=== PATIENT | female | born 1970 | race Caucasian/White ===

== ENCOUNTER → 2017-03-23 | Outpatient (CLI) | payer OTHER ==
--- NOTE | 2017-03-23 15:02 | RAD ---
HISTORY: Pain Study: Left knee series Comparison: None Findings: No evidence for acute cortical disruption or dislocation. The medial and lateral tibiofemoral compar tments appear unremarkable without loss of significant joint space. The lateral radiograph fails to demonstrate significant joint effusion. Patellofemoral compartment is normal in its appearance. IMPRESSION: 1. Negative exam. Reported By:
== END ==
LOC: RAD 13:26
PROVIDERS: ATTEND Obstetrics & Gynecology Obstetrics
DX: M76.52 Patellar tendinitis, left knee (principal)
CPT/HCPCS: 73560

== ENCOUNTER 2017-07-18 14:17 | Observation (INO) | payer BC, OTHER ==
[~2017-07-18 14:17] MED LIST: DIPRIVAN VIAL ONE; LTA KIT LIDOCAINE 4% ONE; NEOSTIGMINE INJ ONE; NORCURON INJ 10 MG VIAL ONE; QUELICIN (OR ANECTINE) ONE; REGLAN INJ 10 MG VIAL ONE; ROBINUL ONE; SUPRANE IN ONE; TORADOL 30 MG VIAL ONE; VERSED ONE; XYLOCAINE 2 % (PLAIN) ONE; ZOFRAN INJ 4 MG VIAL ONE
[2017-07-18 14:26] VITALS: BMI 40.0
--- NOTE | 2017-07-18 15:25 | DR.GENAD ---
HPI - PCP Primary Care Physician: DRAKE - HPI Comment HPI Comment: PAIN GETTING WORSE. PAIN MED TAKING AT HOME IS NOT HELPING PAIN. - Complaint/Symptoms Chief Complaint Doctors Comments: RLQ ABDOMINAL PAIN TIMES 2 TO 3 DAYS WITH NAUSEA. Chief Complaint:: PT C/O RLQ PAIN. PT STATES HER PAIN STARTED WEDNESDAY NIGHT WITH NAUSEA. PT STATES THE PAIN IS GETTING WORSE. THE PT STATES SHE HAS BEEN TAKING PAIN MEDICATIONS WITHOUT RELIEF. - Nurses notes reviewed Nurses Notes Review: Yes - Source History Provided: Patient - Mode of Arrival Mode of Arrival: Ambulatory - Timing Onset of Chief Complaint: 07/16/17 Came on: Suddenly - Duration Duration: Constant Duration: Days - Severity Severity: Moderate PMH - PMH Past Medical History: Yes Past Medical History: Hypertension Past Surgical History: Yes Surgical History: , Tonsillectomy Past Surgical History Comment: WART REMOVAL, LIPOMA REMOVAL, CARPEL TUNNEL - Family History History of Family Medical Conditions: No - Social History Does patient currently use any type of tobacco product: Yes Have you used tobacco products in the last 12 months: Yes Type of Tobacco Use: Cigarettes Does any household member use tobacco: Yes Alcohol Use: Occasionally Do you use any recreational Drugs:: No Lives With: Family Lives Where: Home - infectious screening In the last 2 months have you had wt loss of >10#?: NO Have you had fever, night sweats or hemotysis?: No Have you traveled outside the country in the last 6 months?: No Isolation: Standard ROS - Review of Systems Constitutional: Weakness. negative: Chills, Fatigue Eyes: No Symptoms Reported ENTM: No Symptoms Reported Respiratoy: No Symptoms Reported Cardiovascular: No Symptoms Reported Gastrointestinal/Abdominal: Abdominal Pain, Nausea Genitourinary: No Symptoms Reported. negative: Dysuria, Frequency, Hematuria Neurological: No Symptoms Reported, Weakness Musculoskeletal: No Symptoms Reported Integumentary: No Symptoms Reported Hematologic/Lymphatic: No Symptoms Reported Endocrine: No Symptoms Reported All Other Systems: Reviewed and Negative PE - Vital Signs Vitals: Temperature 98.8 F Pulse Rate 83 Respiratory Rate 22 Blood Pressure 124/68 O2 Sat by Pulse Oximetry 100 - General Limitations: No Limitations General Appearance: Alert - Head Head Exam: Normal Inspection - Eyes Eye exam: Normal Appearance - ENT ENT Exam: Normal External Ear Exam External Ear Exam: Normal External Inspection TM/Canal Exam: Bilateral Normal Nose Exam: Normal Nose Exam Mouth Exam: Normal Inspection Throat Exam: Normal Inspection - Neck Neck Exam: Normal Inspection - Chest Chest Inspection: Symmetric Chest Wall Rise - Respiratory Respiratory Exam: Normal Lung Sounds Bilat Respiratory Exam: Bilateral Clear to Auscultation - Cardiovascular Cardiovascular Exam: Regular Rate, Normal Rhythm, Normal Heart Sounds - Abdominal Exam Abdominal Exam: Normal Bowel Sounds, Soft, Tenderness, Guarding Abdominal Tenderness: RLQ, Moderate - Extremities Extremities Exam: Normal Inspection - Back Back Exam: Normal Inspection - Neurologic Neurological Exam: Alert, Oriented X3 - Psychiatric Psychiatric Exam: Normal Affect, Normal Mood - Skin Skin Exam: Normal Color MDM - Additional Information Additional Information Obtained From: Family - Differential Diagnosis Differential Diagnosis: RLQ ABDOMINAL PAIN, ACUTE APPENDICITIS Course - Treatment Treatment: SEE ORDERS. - Consultation Consultation Comments: DR DESAI WILL BE IN TO DO IMMERGENCY SURGERY ON PT. DR. ENGLE WILL ADMIT PATIENT. - Education/Counseling Education/Counseling: Patient, Family Educated On: Diagnosis ROR - Labs Reviewed Laboratory Results Reviewed?: Yes Result Diagrams: 07/18/17 15:35 07/18/17 15:35 Laboratory: WBC 17.2 X10^3/uL (3.6-10.0) H 07/18/17 15:35 RBC 4.44 X10^6/uL (3.5-5.4) 07/18/17 15:35 Hgb 13.1 g/dL (12.0-16.0) 07/18/17 15:35 Hct 37.6 % (36.0-47.0) 07/18/17 15:35 MCV 84.6 fL (80.0-100.0) 07/18/17 15:35 MCH 29.4 pg (27.0-34.0) 07/18/17 15:35 MCHC 34.8 g/dL (33.0-35.0) 07/18/17 15:35 RDW 13.8 % (11.6-16.5) 07/18/17 15:35 Plt Count 376 X10^3/uL (150.0-450.0) 07/18/17 15:35 MPV 7.6 fL (7.4-11.0) 07/18/17 15:35 Neut % 69.1 % (42.0-75.0) 07/18/17 15:35 Lymph % 20.6 % (21.0-51.0) L 07/18/17 15:35 [place] % 7.8 % (0.0-13.0) 07/18/17 15:35 Eos % 1.9 % (0.9-2.9) 07/18/17 15:35 Baso % 0.6 % (0.2-1.0) 07/18/17 15:35 Neut # 11.9 x10^3/uL (2.2-4.8) H 07/18/17 15:35 Lymph # 3.5 X10^3/uL (1.3-2.9) H 07/18/17 15:35 [place] # 1.3 x10^3/uL (0.3-0.8) H 07/18/17 15:35 Eos # 0.3 x10^3/uL (0.0-0.2) H 07/18/17 15:35 Baso # 0.1 X10^3/uL (0.0-0.1) 07/18/17 15:35 Absolute Nucleated RBC 0.0 /100WBC 07/18/17 15:35 Sodium 136 mmol/L (136-145) 07/18/17 15:35 Corrected Sodium TNP 07/18/17 15:35 Potassium 3.4 mmol/L (3.5-5.1) L 07/18/17 15:35 Chloride 99 mmol/L (98-107) 07/18/17 15:35 Carbon Dioxide 30.4 mmol/L (21-32) 07/18/17 15:35 BUN 9 mg/dL (7-18) 07/18/17 15:35 Creatinine 0.84 mg/dL (0.55-1.02) 07/18/17 15:35 Est GFR (MDRD) Af Amer > 60 (>60) 07/18/17 15:35 Est GFR (MDRD) Non-Af > 60 (>60) 07/18/17 15:35 Glucose 105 mg/dL (65-99) H 07/18/17 15:35 Calcium 8.8 mg/dL (8.5-10.1) 07/18/17 15:35 Corrected Calcium 9.5 mg/dL (8.5-10.1) 07/18/17 15:35 Total Bilirubin 0.40 mg/dL (0.2-1.0) 07/18/17 15:35 AST 11 Units/L (15-37) L 07/18/17 15:35 ALT 14 Units/L (12-78) 07/18/17 15:35 Alkaline Phosphatase 67 Units/L (46-116) 07/18/17 15:35 Total Protein 7.1 g/dL (6.4-8.2) 07/18/17 15:35 Albumin 3.1 g/dL (3.4-5.0) L 07/18/17 15:35 Globulin 4.0 g/dL (2.5-4.5) 07/18/17 15:35 Albumin/Globulin Ratio 0.8 Ratio (1.1-2.1) L 07/18/17 15:35 Amylase 39 Units/L (25-115) 07/18/17 15:35 Lipase 142 Units/L (73-393) 07/18/17 15:35 Specimen Type Random urine 07/18/17 15:43 Urine Color Yellow (YELLOW) 07/18/17 15:43 Urine Appearance Clear (CLEAR) 07/18/17 15:43 Urine pH 7.0 (5.0 - 8.0) 07/18/17 15:43 Ur Specific [place] 1.005 (1.000-1.030) 07/18/17 15:43 Urine Protein Negative (NEGATIVE) 07/18/17 15:43 Urine Glucose (UA) Negative (NEGATIVE) 07/18/17 15:43 Urine Ketones Negative (NEGATIVE) 07/18/17 15:43 Urine Occult Blood 2+ (NEGATIVE) 07/18/17 15:43 Urine Nitrite Negative (NEGATIVE) 07/18/17 15:43 Urine Bilirubin Negative (NEGATIVE) 07/18/17 15:43 Urine Urobilinogen Normal (NORMAL) 07/18/17 15:43 Ur Leukocyte Esterase 1+ (NEGATIVE) 07/18/17 15:43 Urine RBC 01 - 04 /HPF (NEGATIVE) 07/18/17 15:43 Urine WBC 04 - 08 /HPF (NEGATIVE) 07/18/17 15:43 Ur Squamous Epith Cells Many /HPF (NEGATIVE) 07/18/17 15:43 Amorphous Sediment 1+ /HPF (NEGATIVE) 07/18/17 15:43 Urine Bacteria 1+ /HPF (NEGATIVE) 07/18/17 15:43 Urine Trichomonas Few /HPF (NEGATIVE) 07/18/17 15:43 Ur Culture Indicated? No/not indicated 07/18/17 15:43 - XRAY XRAY Interpreted by: Radiologist XRAY Findings: REPORT DISCUSS WITH PATIENT. - Diagnosis Discharge Problem: Acute appendicitis Qualifiers: Acute appendicitis type: unspecified acute appendicitis type Qualified Code(s) : K35.80 - Unspecified acute appendicitis - Discharge Plan Condition: Stable - Follow ups/Referrals Follow ups/Referrals: JUVENAL JUAN [Primary Care Provider] - 3 days - Instructions
[2017-07-18 15:41] LABS: BASOPHILS # (AUTO) 0.1 X10^3/uL (0.0-0.1); BASOPHILS % (AUTO) 0.6 % (0.2-1.0); EOSINOPHILS # (AUTO) 0.3 x10^3/uL (0.0-0.2); EOSINOPHILS % (AUTO) 1.9 % (0.9-2.9); HEMATOCRIT 37.6 % (36.0-47.0); HEMOGLOBIN 13.1 g/dL (12.0-16.0); LYMPHOCYTES # (AUTO) 3.5 X10^3/uL (1.3-2.9); LYMPHOCYTES % (AUTO) 20.6 % (21.0-51.0); MEAN CORPUSCULAR HEMOGLOBIN 29.4 pg (27.0-34.0); MEAN CORPUSCULAR HGB CONC 34.8 g/dL (33.0-35.0); MEAN CORPUSCULAR VOLUME 84.6 fL (80.0-100.0); MEAN PLATELET VOLUME 7.6 fL (7.4-11.0); MONOCYTES # (AUTO) 1.3 x10^3/uL (0.3-0.8); MONOCYTES % (AUTO) 7.8 % (0.0-13.0); NEUTROPHILS # (AUTO) 11.9 x10^3/uL (2.2-4.8); NEUTROPHILS % (AUTO) 69.1 % (42.0-75.0); PLATELET COUNT 376 X10^3/uL (150.0-450.0); RED BLOOD COUNT 4.44 X10^6/uL (3.5-5.4); RED CELL DISTRIBUTION WIDTH 13.8 % (11.6-16.5); WHITE BLOOD COUNT 17.2 X10^3/uL (3.6-10.0)
[2017-07-18 15:50] LABS: ALANINE AMINOTRANSFERASE 14 Units/L (12-78); ALBUMIN 3.1 g/dL (3.4-5.0); ALKALINE PHOSPHATASE 67 Units/L (46-116); AMYLASE 39 Units/L (25-115); ASPARTATE AMINO TRANSFERASE 11 Units/L (15-37); BLOOD UREA NITROGEN 9 mg/dL (7-18); CALCIUM 8.8 mg/dL (8.5-10.1); CARBON DIOXIDE 30.4 mmol/L (21-32); CHLORIDE 99 mmol/L (98-107); COR CA(FOR HYPOALB) 9.5 mg/dL (8.5-10.1); CREATININE 0.84 mg/dL (0.55-1.02); LIPASE 142 Units/L (73-393); SODIUM 136 mmol/L (136-145); TOTAL PROTEIN 7.1 g/dL (6.4-8.2); eGFR BLACK RACES > 60 (>60); eGFR NON BLACK RACES > 60 (>60)
[2017-07-18 15:59] LABS: BILIRUBIN,URINE NEGATIVE (NEGATIVE); BLOOD/HEMOGLOBIN,URINE 2+ (NEGATIVE); GLUCOSE, URINE NEGATIVE (NEGATIVE); KETONES,URINE NEGATIVE (NEGATIVE); LEUKOCYTE ESTERASE ,URINE 1+ (NEGATIVE); NITRITES,URINE NEGATIVE (NEGATIVE); PROTEIN,URINE NEGATIVE (NEGATIVE); UROBILINOGEN,URINE NORMAL (NORMAL)
[2017-07-18 16:01] LABS: APPEARANCE,URINE CLEAR (CLEAR); COLOR,URINE YELLOW (YELLOW)
[2017-07-18] MEDS: NICOTINE PATCH TD SCH (16:02)
[2017-07-18 16:19] LABS: BACTERIA,URINE 1+ /HPF (NEGATIVE); SQUAMOUS EPITHELIAL CELL,UR MANY /HPF (NEGATIVE)
[2017-07-18 16:20] LABS: AMORPHOUS SEDIMENT,UR 1+ /HPF (NEGATIVE); TRICHOMONAS,URINE FEW /HPF (NEGATIVE)
--- NOTE | 2017-07-18 18:23 | CT ---
HISTORY: Right lower quadrant pain which started on Wednesday Study: CT abdomen and pelvis with contrast Comparison: None Technique: Multiple axial images of the abdomen and pelvis were obtained from the lung bases to the pubic symphy sis after the administration of IV contrast. Findings: The visualized portions of the lung bases are unremarkable. The liver, spleen, pancreas, kidneys, an d adrenal glands are unremarkable in their CT appearance. The gallbladder is unremarkable in its CT a ppearance. No significant mesenteric lymphadenopathy or stranding can be observed. No free fluid or free air is seen within the abdomen. No bowel wall thickening or bowel dilatation is present. The colon is unremarkable. Specifically, there is no diverticulosis noted within the sigmoid colon. The appendix is enlarged and hyperemic with associated para appendiceal stranding measuring 9 mm in width . These findings are compatible with acute appendicitis. No free air or abscess is seen this time. Th e urinary bladder is grossly unremarkable. The bony structures are grossly intact. IMPRESSION: 1. Acute appendicitis. Reported By:
[2017-07-18] MEDS ORDERED: NS 1000 ML 1,000 ML ONE (19:23)
[2017-07-18] MEDS ORDERED: ANCEF 1 GM IV PREMIX* 2 GM/100 ML BAG IV ONE (19:23)
[2017-07-18] MEDS ORDERED: FENTANYL INJ 250 mcg ONE (19:29)
[2017-07-18] MEDS ORDERED: NS 1000 ML 1,000 ML IV ONE (19:38)
[2017-07-18] MEDS ORDERED: ANCEF VIAL 1 GM IV ONE (19:39)
[2017-07-18] MEDS ORDERED: DECADRON INJ ONE (19:40)
[2017-07-18] MEDS ORDERED: ZOFRAN INJ 4 MG VIAL IVP PRN ×2 (19:47→21:33)
[2017-07-18] MEDS ORDERED: PHENERGAN INJ 25 MG IVP PRN (19:47)
[2017-07-18] MEDS ORDERED: REGLAN INJ 10 MG VIAL IVP PRN (19:47)
[2017-07-18] MEDS ORDERED: DILAUDID INJ IVP PRN ×2 (19:47→21:33)
[2017-07-18] MEDS ORDERED: BENADRYL INJ 50 MG VIAL IVP PRN (19:47)
[2017-07-18] MEDS ORDERED: MARCAINE 0.25% INJ ONE (19:56)
[2017-07-18] MEDS ORDERED: XYLOCAINE 1% and EPINEPHRINE 1:100,000 ONE (19:56)
[2017-07-18] MEDS ORDERED: LR 1000 ML IV 1,000 ML IV ONE (19:57)
[2017-07-18] MEDS ORDERED: ZOSYN VIAL 3.375 GM IV ONE (20:17)
[2017-07-18] MEDS ORDERED: NS 100 ML IV 100 ML IV ONE ×2 (20:18→20:20)
[2017-07-18] MEDS ORDERED: NS IRRIGATION 3000 ML 3,000 ML IR ONE (20:50)
--- NOTE | 2017-07-18 21:42 | OR.GENERIC ---
Post-Op Note Generic - Post-Op Note Operative Report: Date of Operation: July 18, 2017 Pre-Operative Diagnosis: Acute appendicitis. Post-Operative Diagnosis: Suppurative appendicitis. Procedure: Laparoscopic appendectomy. Surgeon: Jayden Askew MD. Vulcanizer Rubber Plate: Juan Felipe CRNA. Specimen: Appendix. Estimated blood loss: Minimal. Complications: None. Summary: The patient is a 47 year old female who presented with abdominal pain. A CT of the abdomen and pelvis demonstrated appendicitis. The patient was offered appendectomy. The risk and benefits of the procedure including difficulty with anesthesia, bleeding, infection, conversion to open procedure, hernia formation , DVT, as well as PE were discussed with the patient. The patient understood these risks and requested the procedure. On July 18, 2017, the patient was brought to the operative theatre. A time out was performed verifying the patient and procedure. The patient received Ancef for pre-operative antibiosis. After satisfactory induction of general endotracheal anesthesia, the abdomen was prepped with Chloraprep and draped in the usual sterile fashion. The skin and subcutaneous tissue inferior to the umbilicus was anesthetized using local anesthetic. The skin was incised sharply. A 12 mm trocar was placed though the incision and into the peritoneal cavity using the Optiview technique. Carbon dioxide was infiltrated through this trocar to obtain a pneumoperitoneum of 15 mm Hg. A camera was placed through this trocar and swept in all directions. No injury was seen from entering the peritoneal cavity. A site was selected in the right upper quadrant for our 2nd trocar. The skin and fascia was anesthetized using local anesthetic. The skin was incised sharply. A 5 mm trocar was placed into the peritoneal cavity under direct visualization. An additional 5 mm trocar was placed in the left lower quadrant in a similar fashion. The cecum was elevated. Inflammation was noted along the appendix with adhesions at the tip of the appendix. The appendix was freed using sharp and blunt dissection. The appendix was elevated and a window made in the mesoappendix. The appendix was divided at the cecum using a POOL stapler with a tissue load. The mesoappendix was foreshortened due to inflammation. The mesoappendix was slowly dissected and divided using ultrasonic feng. The appendix was placed in an endobag and removed through the umbilical trocar site. The cecal staple line was irrigated. No bleeding was seen. All irrigation fluid was removed. The 5 mm trocars were removed under direct visualization and no bleeding seen. The umbilical trocar was removed and insufflation evacuated. The fascia at the umbilicus was re-approximated using a 0-Vicryl placed in a [id number] configuration. The skin edges at all incisions were re-approximated using inverted, interrupted 4-0 Monocryl sutures. Mastisol and Steri-strips were placed. Sterile dressings were placed. The patient was awakened and taken to the recovery room in stable condition. There were no complications. All counts were correct.
[2017-07-18] MEDS: CHECK PATCH XX SCH (22:31)
[2017-07-18] MEDS: PERCOCET TAB 5/325 MG PO PRN (23:00)
[2017-07-19 06:28] LABS: BASOPHILS % (AUTO) 0.3 % (0.2-1.0); EOSINOPHILS % (AUTO) 0.1 % (0.9-2.9); HEMATOCRIT 34.6 % (36.0-47.0); HEMOGLOBIN 11.9 g/dL (12.0-16.0); LYMPHOCYTES # (AUTO) 1.2 X10^3/uL (1.3-2.9); LYMPHOCYTES % (AUTO) 7.2 % (21.0-51.0); MEAN CORPUSCULAR HEMOGLOBIN 29.4 pg (27.0-34.0); MEAN CORPUSCULAR HGB CONC 34.5 g/dL (33.0-35.0); MEAN CORPUSCULAR VOLUME 85.1 fL (80.0-100.0); MEAN PLATELET VOLUME 7.9 fL (7.4-11.0); MONOCYTES # (AUTO) 0.6 x10^3/uL (0.3-0.8); MONOCYTES % (AUTO) 3.2 % (0.0-13.0); NEUTROPHILS # (AUTO) 15.5 x10^3/uL (2.2-4.8); NEUTROPHILS % (AUTO) 89.2 % (42.0-75.0); PLATELET COUNT 318 X10^3/uL (150.0-450.0); RED BLOOD COUNT 4.07 X10^6/uL (3.5-5.4); RED CELL DISTRIBUTION WIDTH 13.8 % (11.6-16.5); WHITE BLOOD COUNT 17.3 X10^3/uL (3.6-10.0)
[2017-07-19 07:57] VITALS: BP 124/64
[2017-07-19] MEDS: PERCOCET TAB 5/325 MG PO PRN (08:44)
[2017-07-19] MEDS: CHECK PATCH XX SCH (08:45)
[2017-07-19] MEDS: NICOTINE PATCH TD SCH (08:45)
[2017-07-19 08:54] LABS: ALANINE AMINOTRANSFERASE 12 Units/L (12-78); ALBUMIN 2.8 g/dL (3.4-5.0); ALKALINE PHOSPHATASE 60 Units/L (46-116); ASPARTATE AMINO TRANSFERASE 12 Units/L (15-37); BLOOD UREA NITROGEN 10 mg/dL (7-18); CALCIUM 8.1 mg/dL (8.5-10.1); CARBON DIOXIDE 28.9 mmol/L (21-32); CHLORIDE 100 mmol/L (98-107); COR CA(FOR HYPOALB) 9.1 mg/dL (8.5-10.1); COR NA(FOR HYPERGLY) 136 mmol/L (136-145); CREATININE 0.83 mg/dL (0.55-1.02); SODIUM 135 mmol/L (136-145); TOTAL PROTEIN 6.6 g/dL (6.4-8.2); eGFR BLACK RACES > 60 (>60); eGFR NON BLACK RACES > 60 (>60)
--- NOTE | 2017-07-19 10:21 | PCM.PROG ---
Progress Note - Progress Note for Day of Date: 07/19/17 - Subjective Subjective: Minimal pain. Feels better. Tolerating CL. (+) OOB. Want to go home. - Past Medical Family Social History Allergies: Allergies No Known Drug Allergies Allergy (Verified 07/18/17 14:23) - Vital Signs and I&O's Vital Signs: Temperature 98.0 F Pulse Rate [Right Radial] 84 Pulse Rate 66 Respiratory Rate 18 Blood Pressure [Left Arm] 124/64 Blood Pressure 92/52 O2 Sat by Pulse Oximetry 94 Intake and Output: Intake & Output 07/16/17 07/17/17 07/18/17 07/19/17 11:59 11:59 11:59 11:59 Intake Total 310 Output Total 1600 Balance -1290 - Physical Exam Cardiovascular: Normal Auscultation: Bowel Sounds: Normal Palpation: Normal Tenderness: Other (Approp. TTP. Dressings C/D/I.) Mood Description: Calm Speech Pattern: Clear, Appropriate - Laboratory and Diagnostics Result Diagrams: 07/19/17 05:15 07/19/17 05:15 Labs: Laboratory WBC 17.3 X10^3/uL (3.6-10.0) H 07/19/17 05:15 RBC 4.07 X10^6/uL (3.5-5.4) 07/19/17 05:15 Hgb 11.9 g/dL (12.0-16.0) L 07/19/17 05:15 Hct 34.6 % (36.0-47.0) L 07/19/17 05:15 MCV 85.1 fL (80.0-100.0) 07/19/17 05:15 MCH 29.4 pg (27.0-34.0) 07/19/17 05:15 MCHC 34.5 g/dL (33.0-35.0) 07/19/17 05:15 RDW 13.8 % (11.6-16.5) 07/19/17 05:15 Plt Count 318 X10^3/uL (150.0-450.0) 07/19/17 05:15 MPV 7.9 fL (7.4-11.0) 07/19/17 05:15 Neut % 89.2 % (42.0-75.0) H 07/19/17 05:15 Lymph % 7.2 % (21.0-51.0) L 07/19/17 05:15 [place] % 3.2 % (0.0-13.0) 07/19/17 05:15 Eos % 0.1 % (0.9-2.9) L 07/19/17 05:15 Baso % 0.3 % (0.2-1.0) 07/19/17 05:15 Neut # 15.5 x10^3/uL (2.2-4.8) H 07/19/17 05:15 Lymph # 1.2 X10^3/uL (1.3-2.9) L 07/19/17 05:15 [place] # 0.6 x10^3/uL (0.3-0.8) 07/19/17 05:15 Eos # 0.0 x10^3/uL (0.0-0.2) 07/19/17 05:15 Baso # 0.0 X10^3/uL (0.0-0.1) 07/19/17 05:15 Absolute Nucleated RBC 0.0 /100WBC 07/19/17 05:15 Sodium 135 mmol/L (136-145) L 07/19/17 05:15 Corrected Sodium 136 mmol/L (136-145) 07/19/17 05:15 Potassium 3.7 mmol/L (3.5-5.1) 07/19/17 05:15 Chloride 100 mmol/L (98-107) 07/19/17 05:15 Carbon Dioxide 28.9 mmol/L (21-32) 07/19/17 05:15 BUN 10 mg/dL (7-18) 07/19/17 05:15 Creatinine 0.83 mg/dL (0.55-1.02) 07/19/17 05:15 Est GFR (MDRD) Af Amer > 60 (>60) 07/19/17 05:15 Est GFR (MDRD) Non-Af > 60 (>60) 07/19/17 05:15 Glucose 161 mg/dL (65-99) H 07/19/17 05:15 Calcium 8.1 mg/dL (8.5-10.1) L 07/19/17 05:15 Corrected Calcium 9.1 mg/dL (8.5-10.1) 07/19/17 05:15 Total Bilirubin 0.30 mg/dL (0.2-1.0) 07/19/17 05:15 AST 12 Units/L (15-37) L 07/19/17 05:15 ALT 12 Units/L (12-78) 07/19/17 05:15 Alkaline Phosphatase 60 Units/L (46-116) 07/19/17 05:15 Total Protein 6.6 g/dL (6.4-8.2) 07/19/17 05:15 Albumin 2.8 g/dL (3.4-5.0) L 07/19/17 05:15 Globulin 3.8 g/dL (2.5-4.5) 07/19/17 05:15 Albumin/Globulin Ratio 0.7 Ratio (1.1-2.1) L 07/19/17 05:15 Amylase 39 Units/L (25-115) 07/18/17 15:35 Lipase 142 Units/L (73-393) 07/18/17 15:35 Specimen Type Random urine 07/18/17 15:43 Urine Color Yellow (YELLOW) 07/18/17 15:43 Urine Appearance Clear (CLEAR) 07/18/17 15:43 Urine pH 7.0 (5.0 - 8.0) 07/18/17 15:43 Ur Specific [place] 1.005 (1.000-1.030) 07/18/17 15:43 Urine Protein Negative (NEGATIVE) 07/18/17 15:43 Urine Glucose (UA) Negative (NEGATIVE) 07/18/17 15:43 Urine Ketones Negative (NEGATIVE) 07/18/17 15:43 Urine Occult Blood 2+ (NEGATIVE) 07/18/17 15:43 Urine Nitrite Negative (NEGATIVE) 07/18/17 15:43 Urine Bilirubin Negative (NEGATIVE) 07/18/17 15:43 Urine Urobilinogen Normal (NORMAL) 07/18/17 15:43 Ur Leukocyte Esterase 1+ (NEGATIVE) 07/18/17 15:43 Urine RBC 01 - 04 /HPF (NEGATIVE) 07/18/17 15:43 Urine WBC 04 - 08 /HPF (NEGATIVE) 07/18/17 15:43 Ur Squamous Epith Cells Many /HPF (NEGATIVE) 07/18/17 15:43 Amorphous Sediment 1+ /HPF (NEGATIVE) 07/18/17 15:43 Urine Bacteria 1+ /HPF (NEGATIVE) 07/18/17 15:43 Urine Trichomonas Few /HPF (NEGATIVE) 07/18/17 15:43 Ur Culture Indicated? No/not indicated 07/18/17 15:43 Tissue Pathology To follow 07/18/17 21:08 - Plan (1) Acute appendicitis Status: Acute Qualifiers: Acute appendicitis type: unspecified acute appendicitis type Qualified Code (s): K35.80 - Unspecified acute appendicitis Plan: POD #1 lap appy. Stable post-op. Routine post-op care. OK discharge from surgery standpoint.
== END 2017-07-19 12:30 | disposition home or self-care (01) ==
LOC: ER 14:50 → MED/SURG 19:44 → INTOOBSV 19:44
PROVIDERS: ADMIT Internal Medicine; ATTEND Internal Medicine
PROC: 0DTJ4ZZ Resection of Appendix, Percutaneous Endoscopic Approach (ICD-10-PCS; principal; 2017-07-18 20:00)
DX: K35.89 Other acute appendicitis (principal); R10.31 Right lower quadrant pain; I10 Essential (primary) hypertension
CPT/HCPCS: 36415; 74177; 80053; 81001; 82150; 83690; 85025; 96365; 96367; 96374; 99284; A4216; A4222; S0020; G0378; J0330; J0690; J1100; J1885; J2001; J2250; J2405; J2543; J2710; J2765; J3010; J3490; J7120